=== PATIENT | female | born 1975 | race Caucasian/White ===

== ENCOUNTER → 2022-10-25 | Outpatient (CLI) | payer OTHER ==
[~2022-10-25] MED LIST: Bactrim Ds Tab1 EACH PO; Pyridium200 MG PO
== END | disposition home or self-care (01) ==
LOC: LAB 11:03 → LAB SHORT 11:03
DX: R30.0 Dysuria (principal)
CPT/HCPCS: 87086

== ENCOUNTER → 2024-04-30 | Outpatient (CLI) | payer OTHER | LOC: LAB 14:02 → LAB SHORT 14:02 | DX: R30.0 Dysuria (principal) | CPT/HCPCS: 87077; 87086; 87186 ==

== ENCOUNTER 2024-12-19 12:15 | Emergency (ER) | payer OTHER ==
[~2024-12-19] VITALS: Ht 167.6 cm; Wt 99.3 kg
[2024-12-19 14:15] VITALS: BP 130/90
== END 2024-12-19 14:27 | disposition home or self-care (01) ==
LOC: ER 12:15
DX: R22.33 Localized swelling, mass and lump, upper limb, bilateral (principal); R22.0 Localized swelling, mass and lump, head; T36.1X5A Adverse effect of cephalosporins and other beta-lactam antibiotics, initial encounter; E11.9 Type 2 diabetes mellitus without complications; I10 Essential (primary) hypertension; Z88.1 Allergy status to other antibiotic agents; Z79.899 Other long term (current) drug therapy
CPT/HCPCS: 96374; 96375; 99285-25; J2919

== ENCOUNTER 2025-01-24 07:14 | Emergency (ER) | payer OTHER ==
[~2025-01-24] VITALS: Ht 167.6 cm; Wt 99.3 kg
[2025-01-24] MEDS ORDERED: Pantoprazole Sodium 40 MG Injection IV ONE (08:25)
[2025-01-24] MEDS ORDERED: NS 1,000 ML IV SCH (08:25)
[2025-01-24] MEDS ORDERED: VALA500 PO (08:49)
[2025-01-24] MEDS ORDERED: SOLIFENACIN SUC10 MG PO (08:50)
[2025-01-24] MEDS ORDERED: FOLI1 PO (08:50)
[2025-01-24] MEDS ORDERED: ATOR10 PO (08:50)
[2025-01-24] MEDS ORDERED: OZEMPIC0.25 MG/02 SQ (08:50)
[2025-01-24] MEDS ORDERED: HYDCHL25 PO (08:51)
[2025-01-24] MEDS ORDERED: METF500 PO (08:51)
[2025-01-24] MEDS ORDERED: ESTRADIOL42.5 GM (08:51)
[2025-01-24 08:52] LABS: Source, Urine Clean Catch
[2025-01-24] MEDS ORDERED: METTREX2.5 PO (08:52)
[2025-01-24 08:57] LABS: Bilirubin, Urine Neg (Neg); Glucose Qualitative, Urine Neg (Neg); Ketones, Urine Neg (Neg); Leukocyte Esterase, Urine 2+ (Neg); Protein, Urine 2+ (Neg); Specific Gravity, Urine 1.020 (1.003-1.022); Urobilinogen, Urine NORM (Normal)
[2025-01-24 09:08] LABS: Color, Urine Yellow (P-Yellow)
[2025-01-24 09:09] LABS: BASOPHILS ABSOLUTE AUTO 0.03 K/mm3 (0.00-0.23); BASOPHILS PERCENT AUTO 0 % (0-2); EOSINOPHILS ABSOLUTE AUTO 0.04 K/mm3 (0.00-0.68); EOSINOPHILS PERCENT AUTO 0 % (0-6); Hematocrit 43.2 % (33.0-51.0); Hemoglobin 14.3 g/dL (11.5-16.0); IMMATURE GRAN ABSOLUTE AUTO 0.04 K/mm3 (0.00-0.10); IMMATURE GRAN PERCENT AUTO 0 % (0-1); LYMPHOCYTES ABSOLUTE AUTO 1.43 K/mm3 (0.84-5.20); LYMPHOCYTES PERCENT AUTO 9 % (21-46); MONOCYTES ABSOLUTE AUTO 0.63 K/mm3 (0.16-1.47); MONOCYTES PERCENT AUTO 4 % (4-13); Mean Corpuscular HGB Conc 33.1 g/dL (31.5-36.5); Mean Corpuscular Volume 93 fL (80-100); NEUTROPHILS ABSOLUTE AUTO 13.06 K/mm3 (1.96-9.15); NEUTROPHILS PERCENT AUTO 86 % (41-73); NRBC ABSOLUTE 0.00 K/mm3 (0.00-0.02); NRBC Auto 0.0 /100 WBC (0.0-0.2); Platelet Count 299 K/mm3 (150-400); RDW Coefficient Variation 13.8 % (11.7-14.2); RDW Standard Deviation 46.3 fL (35.1-46.3)
[2025-01-24 09:15] LABS: Red Blood Cells, Urine 0-2 /hpf (0-2)
[2025-01-24 09:22] LABS: Alanine Aminotransfer (ALT/SGP 48.0 U/L (12-78); Albumin, Blood 3.8 g/dL (3.4-5.0); Albumin/Globulin Ratio 1.0 (0.8-1.8); Anion Gap 7.0 mmol/L (3-11); Aspartate Aminotrans (AST/SGOT 34.0 U/L (12-37); Bilirubin, Total 0.8 mg/dL (0.1-1.0); Blood Urea Nitrogen 16.0 mg/dL (8-24); CO2, Blood 26.0 mmol/L (21-32); Calcium, Blood 9.4 mg/dL (8.5-10.1); Chloride, Blood 106.0 mmol/L (98-108); Creatinine, Blood 0.87 mg/dL (0.40-1.00); Globulin, Blood 3.8 g/dL (2.2-4.0); Glucose, Blood 95.0 mg/dL (70-99); Potassium, Blood 3.4 mmol/L (3.5-5.5); Sodium, Blood 136.0 mmol/L (136-145); Total Protein, Blood 7.6 g/dL (6.4-8.2)
[2025-01-24 09:40] VITALS: BP 147/96
[2025-01-24] MEDS ORDERED: PYRIDIUM200 MG PO (10:16)
[2025-01-24] MEDS ORDERED: ONDA4ODT MM (10:16)
[2025-01-24] MEDS ORDERED: CIPR500 PO (10:16)
== END 2025-01-24 10:34 | disposition home or self-care (01) ==
LOC: ER 07:14
PROVIDERS: Emergency Medicine
DX: K80.20 Calculus of gallbladder without cholecystitis without obstruction (principal); N39.0 Urinary tract infection, site not specified; E88.89 Other specified metabolic disorders; E87.6 Hypokalemia; E11.9 Type 2 diabetes mellitus without complications; R74.8 Abnormal levels of other serum enzymes; Z79.899 Other long term (current) drug therapy; Z88.5 Allergy status to narcotic agent
CPT/HCPCS: 76705; 80053; 81001; 83690; 85025; 96361; 96374; 99284-25; A9270; J2470; J7030